=== PATIENT | female | born 1965 | race Caucasian/White ===

== ENCOUNTER 2016-11-01 10:00 | Inpatient (IN) | payer OTHER ==
[~2016-11-01] VITALS: Ht 167.6 cm; Wt 98.0 kg
--- NOTE | ~2016-11-01 | HP ---
Unit #: [id number] #: [id number] Patient: AMY HORAN [id number] [facility] [address] [place] [address] [id number] MR#: [id number] NAME: AMY HORAN ROOM: P256 Age: 51 Sex: F Admission Date: 11/01/2016 : 1965 Attending Physician: Tj Tomas M.D. Admitting Physician: Tj Tomas M.D. Primary Care Physician: Generic Doctor Not In System HISTORY AND PHYSICAL HISTORY OF PRESENT ILLNESS Amy is a 51 year old admitted to [address] [place] [address] with depression and after a suicide attempt with an overdose of Valium, Seroquel and insulin. She was admitted to [facility] on 10/26/16, treated and when medically stable transferred to [facility] for psychiatric care. PAST MEDICAL HISTORY 1. History of illicit drug use to include methamphetamine. 2. Diabetes mellitus. 3. Hepatitis C. 4. COPD. PAST SURGICAL HISTORY 1. Cholecystectomy. 2. Appendectomy. ALLERGIES Morphine, codeine, penicillin. SOCIAL HISTORY Smokes 1 pack per day. Denies alcohol and illicit drug use. FAMILY HISTORY Medically noncontributory. REVIEW OF SYSTEMS CONSTITUTIONAL: No fever or chills. HEENT: Denies any sore throat, ear pain or runny nose. CARDIOVASCULAR: Denies chest pain, irregular heart rhythm or palpitations. CHEST: Denies shortness of breath or cough. No hemoptysis. GASTROINTESTINAL: Denies nausea, vomiting, diarrhea or chronic constipation. ENDOCRINE: Denies history of increased thirst or urination. No recent significant weight loss or gain. GENITOURINARY: Denies dysuria, frequency, or hematuria. SKIN: Denies any rashes. HEMATOLOGIC: Denies history of increased bleeding or bruising. MUSCULOSKELETAL: Denies any hot, swollen joints. No generalized muscle pain. NEUROLOGIC: Denies problems with vision or speech. No frequent, severe headaches. No numbness, tingling or weakness in any extremities. Denies loss of bladder or bowel control. Unit #: [id number] #: [id number] Patient: AMY HORAN CURRENT MEDICATIONS 1. [place] 150 mg b.i.d. 2. Seroquel 50 mg q.h.s. p.r.n. 3. Milk of Magnesia p.r.n. 4. Maalox p.r.n. 5. Tylenol p.r.n. 6. Nicotine patch 14 mg daily. 7. Lovenox 40 mg subcu daily. 8. Symbicort b.i.d. 9. Neurontin 600 mg q.i.d. 10. Aspirin 81 mg daily. 11. Celexa 20 mg daily. 12. NovoLog per sliding scale. PHYSICAL EXAMINATION GENERAL: Alert, well-nourished, in no apparent distress. VITAL SIGNS: Blood pressure 140/86, heart rate 96, respirations 16, temperature 98.6. WEIGHT: 216. HEIGHT: 5 feet 6 inches. SKIN: Warm and dry without rash or lesion. HEENT: Normocephalic. TMs not viewed. Oral and nasal passages clear. Conjunctivae clear. PERRLA. EOMs intact. NECK: Supple without lymphadenopathy or thyromegaly. HEART: Regular rate and rhythm without murmur. LUNGS: Clear. ABDOMEN: Soft, nontender. : Not done. EXTREMITIES: No evidence of cyanosis, clubbing or edema. Moves all without focal deficit. NEUROLOGICAL: Grossly within normal limits. Cranial Nerves: II: Visual santiago are intact. III, IV AND : Extraocular movements are intact. Pupils are equal, round and reactive to light. V: Facial sensation is grossly normal. VII: Facial movements and expression are normal. VIII: Auditory acuity grossly intact. IX, X: Uvula is midline. Phonation is normal. XI: Patient shrugs shoulders and turns head normally. XII: Tongue protrudes in the midline. Sensory and Motor Function: Sensory and motor sensation is grossly normal. Motor: moves all extremities well. Coordination: Gait is normal. Deep Tendon Reflexes: Intact. IMPRESSION Psychiatric admission. RECOMMENDATIONS PSYCHIATRIC: Per psychiatrist. MEDICAL: 1. See no contraindication to participate in facility's activities. 2. Plan to dc Lovenox. MEDICAL PROGNOSIS Good. MEDICAL CONDITION Stable. Unit #: [id number] #: [id number] Patient: AMY HORAN Dictated by... Chitra Lyn P.A.-C. for Brittanie Guo/alec TD: 11/02/2016 16:37 JOB #: [id number] HISTORY AND PHYSICAL Page 1 of 1 X Chitra Lyn HISTORY AND PHYSICAL
--- NOTE | ~2016-11-01 | PA ---
Unit #: [id number] #: [id number] Patient: PEMA HORAN [id number] [facility] [address] [place] [address] [id number] I MR#: [id number] NAME: PEMA HORAN ROOM: P256 Age: 51 Sex: F Admission Date: 11/01/2016 : 1965 Date of Assessment: Attending Physician: Tj Tomas M.D. Admitting Physician: Tj Tomas M.D. Primary Care Physician: Generic Doctor Not In System PSYCHIATRIC ASSESSMENT INFORMANTS The patient reliability, fair informant and chart reliability, good. CHIEF COMPLAINT Overdose. HISTORY OF PRESENT ILLNESS Ms. Reyes is a 51-year-old white female, seen on 2-J[facility] with the above-mentioned complaint. The patient reports taking overdose of her pills, treated at [facility], stabilized and then transferred here for psychiatric stabilization. The patient has a history of COPD, diabetes, IV drug abuse, and history of hepatitis. The patient was admitted from [facility]. The patient reported taking overdose of 90 Valium, Seroquel, insulin and left a suicide note for her brother. The patient reports this is a serious second suicide attempt, the last one was 2 years ago. The patient's stressors included of her daughter a few weeks ago from drug abuse, loss of her grandchildren. The patient currently living with friends. The patient reported low energy, depressed mood, anxiety, and hallucination. Needing inpatient admission at this time for psychiatric stabilization. PAST PSYCHIATRIC HISTORY Remarkable for history of recent treatment at [facility] after suicide attempt by taking overdose. FAMILY HISTORY AND SOCIAL HISTORY The patient has a good support system. No history of abuse. No legal charges. MEDICAL HISTORY Remarkable for history of diabetes, COPD, IV drug use, and hepatitis. MEDICATION HISTORY Acetaminophen, aspirin, Celexa, clonidine, insulin, Neurontin, and Symbicort. ALLERGIES No known drug allergies. SUBSTANCE ABUSE HISTORY History of tobacco use, alcohol abuse, crack cocaine 15 to 20 years ago, and amphetamine. The patient reported a history of IV drug use, history of hepatitis, and withdrawal symptom. Unit #: [id number] #: [id number] Patient: PEMA HORAN REVIEW OF SYSTEMS HEENT: Eyes, clear. Ears, nose, mouth, and throat; clear. CARDIOVASCULAR: Unremarkable. RESPIRATORY: Unremarkable. GI: Unremarkable. : Unremarkable. SKIN: Unremarkable. LYMPH NODE: Unremarkable. NEUROLOGIC: Unremarkable. ENDOCRINE: Unremarkable. HEMATOLOGIC: Unremarkable. ALLERGIC/IMMUNOLOGIC: Unremarkable. MUSCULOSKELETAL: Muscle strength and tone, no atrophy or abnormal movement. Gait normal. MENTAL STATUS EXAMINATION CONSTITUTIONAL: Measurement of vital signs; temperature 98.0, heart rate 96, respiratory rate 16, and blood pressure 141/87. Height 5 feet 6 inches and weight 260 pounds. GENERAL APPEARANCE: The patient dressed casually. The patient did not show any facial deformity. MUSCULOSKELETAL: Please see above. PSYCHIATRIC EXAMINATION Description of speech; regular rate, normal volume, normal articulation, and coherent. Description of thought process, goal directed. Description of association, intact. Description of abnormal psychotic thinking; the patient denied any hallucination or delusions, but sad, depressed, suicidal ideation, and recent suicide attempt. Denied any homicidal ideation. Description of the patient's judgment: Concerning everyday activity, poor. Social situation, poor. Concerning psychiatric condition, poor. Complete mental status examination; oriented in time, place, and person. Recent and remote memory, fair. Attention span and concentration, fair. Language, able to name object and repeat phrases. Fund of knowledge, aware of current event and passive vocabulary intact. Mood and affect, sad and dysphoric. Insight and judgment, fair to poor. ASSETS AND LIABILITIES Assets, the patient is articulate and able to take care of her ADL. Liability, history of depression and substance abuse. ADMITTING DIAGNOSES Psychiatric: Major depressive disorder, recurrent, severe, F33.2; amphetamine use disorder, severe, F15.20; and rule out bipolar mood disorder, F31.9. Secondary diagnosis: Deferred. Medical diagnoses: Diabetes, chronic obstructive pulmonary disease, and hepatitis C. Stressors: Psychosocial stressors. PSYCHIATRIC PLAN AND TREATMENT GOAL AND DISCHARGE PLAN 1. Advised to admit the patient on the inpatient unit. Provide safe, Unit #: [id number] #: [id number] Patient: PEMA HORAN supportive, and structured environment. 2. Ordered labs; CBC, CMP, UA, and UDS. 3. Advised to resume home medication. If needed, consider further adjustment of medication. Plan to check lithium level. Treatment goal to attain euthymic mood, gain insight into her problem, and learn coping skills. DISCHARGE PLAN Plan to stabilize the patient and consider followup in outpatient program. ESTIMATED LENGTH OF STAY 5 to 7 days. Dictated by... Brittanie El/pepe TD: 11/02/2016 20:17 JOB #: [id number] PSYCHIATRIC ASSESSMENT Page 1 of 1 X Tj Tomas MD X PSYCHIATRIC ASSESSMENT
--- NOTE | ~2016-11-01 | PN ---
Unit #: [id number] #: [id number] Patient: PEMA HORAN [id number] [facility] [address] [place] [address] [id number] MR#: [id number] NAME: PEMA HORAN ROOM: P256 Age: 51 Sex: F Admission Date: 11/01/2016 : 1965 Attending Physician: Tj Tomas M.D. Admitting Physician: Tj Tomas M.D. Primary Care Physician: Generic Doctor Not In System [facility] PROGRESS NOTES DATE OF SERVICE 11/01/2016 DISCUSSION Ms. Reyes is a 51-year-old female seen on 11/02/2016. The patient interviewed, chart reviewed. Obtained information from nursing staff. The patient compliant with medication. Sad, dysphoric, withdrawn, isolative, flat affect, guarded, anxious. Complete Review of Systems: Unremarkable. MENTAL STATUS EXAMINATION General Appearance: The patient dressed casually. Attention span, concentration: Fair. Oriented in time, place, and person. Mood and affect: Sad, dysphoric. Speech: Monotone. Thought process: [place]. The patient denied any suicidal thoughts at this time, but passive in nature. Denied any homicidal ideation or psychotic symptom. Recent and remote memory: Poor. Insight and judgment: Poor. DIAGNOSIS Bipolar mood disorder not otherwise specified. ASSESSMENT/PLAN Advised to continue with current medication and therapeutic protocol. If needed, consider further adjustment of medication. Dictated by... Brittanie El/lashell TD: 11/03/2016 10:53 JOB #: [id number] Unit #: [id number] #: [id number] Patient: PEMA HORAN [facility] PROGRESS NOTES Page 1 of 1 X Tj Tomas MD X PROGRESS NOTE
--- NOTE | ~2016-11-01 | DS ---
Unit #: [id number] #: [id number] Patient: PEMA HORAN [id number] [facility] [address] [place] [address] [id number] I MR#: [id number] NAME: PEMA HORAN ROOM: [facility] Age: 51 Sex: F Admission Date: 11/01/2016 : 1965 Discharge Date: 11/03/2016 Attending Physician: Tj Tomas M.D. Primary Care Physician: Generic Doctor Not In System DISCHARGE SUMMARY REASON FOR ADMISSION Overdose. DIAGNOSTIC STUDIES LABORATORY RESULTS: Unremarkable except lithium level less than 0.1. Blood glucose 220. HOSPITAL COURSE The patient was admitted to inpatient unit on 11/01/2016 and discharged on 11/03/2016. The patient was treated with group therapy, individual therapy, medication management. The patient was responsive to treatment. Subsequently, the patient was discharged with a plan to follow up in outpatient program. DISCHARGE MEDICATIONS Helper carbonate 300 mg b.i.d. for mood stabilization, Celexa 20 mg daily for mood symptom, Neurontin 400 mg t.i.d. for anxiety. The patient was given one week supply. DISCHARGE DIAGNOSES Psychiatric: Major depressive disorder, recurrent, severe, F33.2; amphetamine use disorder, severe, F15.20; rule out bipolar mood disorder, F31.9. Secondary diagnosis: Deferred. Medical diagnoses: Diabetes, chronic obstructive pulmonary disease, hepatitis C. Stressors: Psychosocial stressors. DISCHARGE INSTRUCTIONS The patient to follow up in outpatient clinic as per social work therapist. CONDITION ON DISCHARGE The patient was pleasant and cooperative. Denied any psychotic symptom or any suicidal ideation. PROGNOSIS Guarded. DIET AND ACTIVITY As tolerated. Unit #: [id number] #: [id number] Patient: PEMA HORAN Dictated by... Tj Tomas M.D. SZC/pepe TD: 11/04/2016 01:58 JOB #: [id number] DISCHARGE SUMMARY Page 1 of 1 X Tj Tomas MD X DISCHARGE SUMMARY
== END 2016-11-03 13:30 | disposition home or self-care (01) | DRG 885 ==
LOC: P2L 17:16
DX: F33.2 Major depressive disorder, recurrent severe without psychotic features (principal); F15.20 Other stimulant dependence, uncomplicated; R45.851 Suicidal ideations; E11.9 Type 2 diabetes mellitus without complications; J44.9 Chronic obstructive pulmonary disease, unspecified; B19.20 Unspecified viral hepatitis C without hepatic coma; T42.4X2D Poisoning by benzodiazepines, intentional self-harm, subsequent encounter; Z90.49 Acquired absence of other specified parts of digestive tract; Z88.0 Allergy status to penicillin; Z88.5 Allergy status to narcotic agent; F17.210 Nicotine dependence, cigarettes, uncomplicated
CPT/HCPCS: 80178; 82947; J1650